=== PATIENT | male | born 1960 | race Caucasian/White ===

== ENCOUNTER 2018-05-18 19:12 | Inpatient (IN) | payer OTHER, MEDICAID ==
[~2018-05-18] VITALS: Ht 170.2 cm; Wt 74.1 kg
[2018-05-18 20:15] LABS: BASOPHIL % 0.3 % (0-2); PLATELET COUNT 312 x10^3mcL (130-400)
[2018-05-18 20:34] LABS: RED CELL DISTRIBUTION WIDTH 15.5 % (11.5-14.5)
[2018-05-18 20:38] LABS: CALCIUM 7.9 mg/dL (8.5-10.1); CARBON DIOXIDE 32.8 mmol/L (21-32); CHLORIDE SERUM 108 mmol/L (98-107); CREATININE SERUM 1.2 mg/dL (0.7-1.3); GFR1 > 60 mL/min; GLUCOSE SERUM 139 mg/dL (74-106); POTASSIUM SERUM 4.1 mmol/L (3.5-5.1); SODIUM SERUM 141 mmol/L (136-145)
[2018-05-18 20:42] LABS: ALKALINE PHOSPHATASE 71 U/L (46-116); ALT/SGPT 15 U/L (16-63); AST/SGOT 18 U/L (15-37); BILIRUBIN TOTAL 0.17 mg/dL (0.20-1.00)
[2018-05-18 20:43] LABS: ALBUMIN 2.3 g/dL (3.4-5.0); TOTAL PROTEIN, SERUM 5.9 g/dL (6.4-8.2)
[2018-05-18 21:02] LABS: rbc morphology (normal/abnorm) ABNORMAL (NORMAL)
[2018-05-18] MEDS ORDERED: NOR10T PO (23:01)
[2018-05-18] MEDS ORDERED: MOT800 PO (23:01)
[2018-05-18 23:02] LABS: microscopic required? NO
[2018-05-18 23:29] LABS: UA SPECIFIC GRAVITY 1.025 (1.005-1.035); urine erythrocyte NEGATIVE (NEGATIVE)
[2018-05-18 23:43] LABS: T3 TOTAL 0.91 ng/mL
[2018-05-18 23:45] LABS: PHOSPHOROUS 3.7 mg/dL (2.5-4.9)
[2018-05-18 23:50] LABS: CHOLESTEROL/HDL RATIO 3.4
[2018-05-18 23:52] VITALS: BP 89/52
[2018-05-18 23:53] LABS: AMPHETAMINE QUAL UR NONE DETECTED (See below)
[2018-05-19] VITALS (19 sets, daily range): BP systolic 73–131; BP diastolic 43–79
[2018-05-19 00:03] LABS: RED BLOOD CELLS 1.92 M/mm3 (4.52-5.90)
[2018-05-19 00:46] LABS: FREE T4 0.86 ng/dL (0.76-1.46)
[2018-05-19 00:55] LABS: FREE THYROXINE INDEX 1.7 ug/dL (1.4-4.5); T4(THYROXINE) 4.5 ug/dL (4.7-13.3)
[2018-05-19 01:51] LABS: IRON 8 ug/dL (65-170); TOTAL IRON BINDING CAPACITY 234 ug/dL (250-450)
[2018-05-19 02:36] LABS: BASOPHIL % 0.3 % (0-2); PLATELET COUNT 237 x10^3mcL (130-400)
[2018-05-19 02:51] LABS: RED CELL DISTRIBUTION WIDTH 15.6 % (11.5-14.5)
[2018-05-19 08:28] LABS: CALCIUM 7.6 mg/dL (8.5-10.1); CARBON DIOXIDE 26.2 mmol/L (21-32); CHLORIDE SERUM 110 mmol/L (98-107); CREATININE SERUM 1.3 mg/dL (0.7-1.3); GFR1 > 60 mL/min; GLUCOSE SERUM 145 mg/dL (74-106); MAGNESIUM 1.9 mg/dL (1.8-2.4); POTASSIUM SERUM 4.4 mmol/L (3.5-5.1); SODIUM SERUM 143 mmol/L (136-145)
[2018-05-19 08:33] LABS: BASOPHIL % 0.3 % (0-2); PLATELET COUNT 224 x10^3mcL (130-400)
[2018-05-19 08:37] LABS: RED CELL DISTRIBUTION WIDTH 19.4 % (11.5-14.5)
[2018-05-19 08:38] LABS: rbc morphology (normal/abnorm) NORMAL (NORMAL)
[2018-05-19 09:42] LABS: microscopic required? NO
[2018-05-19 09:46] LABS: urine erythrocyte NEGATIVE (NEGATIVE)
[2018-05-19 17:59] LABS: BASOPHIL % 0.2 % (0-2); PLATELET COUNT 165 x10^3mcL (130-400)
[2018-05-19 18:01] LABS: RED CELL DISTRIBUTION WIDTH 17.9 % (11.5-14.5)
[2018-05-20] VITALS (17 sets, daily range): BP systolic 89–120; BP diastolic 49–73
[2018-05-20 05:36] LABS: BASOPHIL % 0.4 % (0-2); PLATELET COUNT 191 x10^3mcL (130-400)
[2018-05-20 05:37] LABS: RED CELL DISTRIBUTION WIDTH 18.5 % (11.5-14.5)
[2018-05-20 05:53] LABS: CALCIUM 7.8 mg/dL (8.5-10.1); CARBON DIOXIDE 25.5 mmol/L (21-32); CREATININE SERUM 1.4 mg/dL (0.7-1.3); MAGNESIUM 1.9 mg/dL (1.8-2.4); PHOSPHOROUS 3.9 mg/dL (2.5-4.9); POTASSIUM SERUM 3.8 mmol/L (3.5-5.1)
[2018-05-21] VITALS (18 sets, daily range): BP systolic 93–118; BP diastolic 48–80
[2018-05-21 07:38] LABS: CALCIUM 7.6 mg/dL (8.5-10.1); CARBON DIOXIDE 23.8 mmol/L (21-32); CHLORIDE SERUM 113 mmol/L (98-107); CREATININE SERUM 1.1 mg/dL (0.7-1.3); GFR1 > 60 mL/min; GLUCOSE SERUM 120 mg/dL (74-106); MAGNESIUM 2.1 mg/dL (1.8-2.4); PHOSPHOROUS 2.8 mg/dL (2.5-4.9); POTASSIUM SERUM 3.4 mmol/L (3.5-5.1); SODIUM SERUM 140 mmol/L (136-145)
[2018-05-21 07:48] LABS: BASOPHIL % 0.7 % (0-2); PLATELET COUNT 168 x10^3mcL (130-400)
[2018-05-22] VITALS (16 sets, daily range): BP systolic 92–132; BP diastolic 47–75
[2018-05-22 05:35] LABS: BASOPHIL % 0.4 % (0-2); PLATELET COUNT 151 x10^3mcL (130-400)
[2018-05-22 05:38] LABS: RED CELL DISTRIBUTION WIDTH 18.1 % (11.5-14.5)
[2018-05-22 05:43] LABS: CALCIUM 7.3 mg/dL (8.5-10.1); CARBON DIOXIDE 25.6 mmol/L (21-32); CHLORIDE SERUM 112 mmol/L (98-107); GFR1 > 60 mL/min; GLUCOSE SERUM 117 mg/dL (74-106); MAGNESIUM 1.9 mg/dL (1.8-2.4); POTASSIUM SERUM 3.4 mmol/L (3.5-5.1); SODIUM SERUM 144 mmol/L (136-145)
[2018-05-22 06:45] LABS: rbc morphology (normal/abnorm) ABNORMAL (NORMAL)
[2018-05-22 19:06] LABS: BASOPHIL % 0.6 % (0-2); PLATELET COUNT 179 x10^3mcL (130-400)
[2018-05-22 19:07] LABS: RED CELL DISTRIBUTION WIDTH 16.5 % (11.5-14.5)
[2018-05-23] VITALS (18 sets, daily range): BP systolic 93–128; BP diastolic 50–78; Ht 170.2 cm; Wt 74.1 kg
[2018-05-23 05:52] LABS: CALCIUM 7.8 mg/dL (8.5-10.1); CARBON DIOXIDE 27.5 mmol/L (21-32); CHLORIDE SERUM 107 mmol/L (98-107); CREATININE SERUM 0.9 mg/dL (0.7-1.3); GFR1 > 60 mL/min; GLUCOSE SERUM 88 mg/dL (74-106); PHOSPHOROUS 2.7 mg/dL (2.5-4.9); POTASSIUM SERUM 3.1 mmol/L (3.5-5.1); SODIUM SERUM 139 mmol/L (136-145)
[2018-05-23 06:21] LABS: BASOPHIL % 0.5 % (0-2); PLATELET COUNT 183 x10^3mcL (130-400)
[2018-05-23 06:22] LABS: RED CELL DISTRIBUTION WIDTH 17.3 % (11.5-14.5)
[2018-05-24] VITALS (20 sets, daily range): BP systolic 92–146; BP diastolic 51–79
[2018-05-24 05:26] LABS: BASOPHIL % 0.3 % (0-2); PLATELET COUNT 232 x10^3mcL (130-400)
[2018-05-24 05:27] LABS: RED CELL DISTRIBUTION WIDTH 17.5 % (11.5-14.5)
[2018-05-24 05:28] LABS: CALCIUM 7.7 mg/dL (8.5-10.1); CARBON DIOXIDE 25.6 mmol/L (21-32); CHLORIDE SERUM 105 mmol/L (98-107); CREATININE SERUM 0.9 mg/dL (0.7-1.3); GFR1 > 60 mL/min; GLUCOSE SERUM 96 mg/dL (74-106); MAGNESIUM 2.1 mg/dL (1.8-2.4); PHOSPHOROUS 3.3 mg/dL (2.5-4.9); POTASSIUM SERUM 3.4 mmol/L (3.5-5.1); SODIUM SERUM 137 mmol/L (136-145)
[2018-05-25] VITALS (7 sets, daily range): BP systolic 105–123; BP diastolic 52–68
[2018-05-25 05:41] LABS: BASOPHIL % 0.4 % (0-2); PLATELET COUNT 283 x10^3mcL (130-400)
[2018-05-25 05:43] LABS: RED CELL DISTRIBUTION WIDTH 16.2 % (11.5-14.5)
[2018-05-25 05:50] LABS: CARBON DIOXIDE 24.3 mmol/L (21-32); CHLORIDE SERUM 107 mmol/L (98-107); GFR1 > 60 mL/min; GLUCOSE SERUM 121 mg/dL (74-106); MAGNESIUM 2.1 mg/dL (1.8-2.4); PHOSPHOROUS 2.7 mg/dL (2.5-4.9); POTASSIUM SERUM 3.6 mmol/L (3.5-5.1); SODIUM SERUM 141 mmol/L (136-145)
[2018-05-26 05:44] VITALS: BP 110/68
[2018-05-26 08:55] VITALS: BP 107/56
[2018-05-26 10:56] LABS: CALCIUM 8.5 mg/dL (8.5-10.1); CARBON DIOXIDE 27.6 mmol/L (21-32); CHLORIDE SERUM 101 mmol/L (98-107); CREATININE SERUM 1.1 mg/dL (0.7-1.3); GFR1 > 60 mL/min; GLUCOSE SERUM 171 mg/dL (74-106); POTASSIUM SERUM 3.3 mmol/L (3.5-5.1); SODIUM SERUM 138 mmol/L (136-145)
[2018-05-26 10:59] LABS: MAGNESIUM 2.1 mg/dL (1.8-2.4); PHOSPHOROUS 3.7 mg/dL (2.5-4.9)
[2018-05-26 11:09] LABS: PLATELET COUNT 335 x10^3mcL (130-400)
[2018-05-26 12:19] LABS: BAND NEUTROPHIL 3 % (0-10); BASOPHIL 0 % (0-2); MONOCYTE 6 % (0-7)
[2018-05-26 12:20] LABS: SEGMENTED NEUTROPHILS 85 % (37-75)
[2018-05-26 12:21] LABS: rbc morphology (normal/abnorm) ABNORMAL (NORMAL)
[2018-05-26 12:22] LABS: target cell (codocyte) 1+
[2018-05-26 13:56] VITALS: BP 112/60
[2018-05-26 17:38] VITALS: BP 104/63
[2018-05-26 20:56] VITALS: BP 106/63
[2018-05-27 04:34] VITALS: BP 107/67
[2018-05-27 06:55] LABS: BASOPHIL % 0.5 % (0-2); PLATELET COUNT 388 x10^3mcL (130-400)
[2018-05-27 07:01] LABS: CALCIUM 8.7 mg/dL (8.5-10.1); CHLORIDE SERUM 101 mmol/L (98-107); CREATININE SERUM 1.1 mg/dL (0.7-1.3); GFR1 > 60 mL/min; GLUCOSE SERUM 111 mg/dL (74-106); MAGNESIUM 2.1 mg/dL (1.8-2.4); PHOSPHOROUS 3.8 mg/dL (2.5-4.9); POTASSIUM SERUM 3.4 mmol/L (3.5-5.1); SODIUM SERUM 138 mmol/L (136-145)
[2018-05-27 09:10] VITALS: BP 97/58
[2018-05-27 12:00] VITALS: BP 104/59
[2018-05-27 16:23] VITALS: BP 124/69
[2018-05-27 20:43] VITALS: BP 96/65
[2018-05-28 05:26] VITALS: BP 98/64
[2018-05-28 12:32] VITALS: BP 99/63
[2018-05-28 18:00] VITALS: BP 100/56
[2018-05-28 21:08] VITALS: BP 98/57
[2018-05-29 06:38] LABS: RED CELL DISTRIBUTION WIDTH 16.9 % (11.5-14.5)
[2018-05-29 06:39] LABS: BASOPHIL % 0 % (0-2); PLATELET COUNT 410 x10^3mcL (130-400)
[2018-05-29 06:40] VITALS: BP 102/61
[2018-05-29 06:40] LABS: CALCIUM 9.1 mg/dL (8.5-10.1); CARBON DIOXIDE 26.8 mmol/L (21-32); CHLORIDE SERUM 103 mmol/L (98-107); CREATININE SERUM 1.1 mg/dL (0.7-1.3); GFR1 > 60 mL/min; GLUCOSE SERUM 103 mg/dL (74-106); POTASSIUM SERUM 4.2 mmol/L (3.5-5.1); SODIUM SERUM 137 mmol/L (136-145)
[2018-05-29 10:49] VITALS: BP 105/72
[2018-05-29 13:09] VITALS: BP 95/56
[2018-05-29] MEDS ORDERED: COL100 PO (13:28)
[2018-05-29] MEDS ORDERED: IPRATROPIUM BROM3 M2 INH (13:28)
[2018-05-29] MEDS ORDERED: PROTONIX40 MG PO (13:29)
[2018-05-29 13:36] VITALS: BP 95/56
== END 2018-05-29 15:07 | DRG 870 ==
LOC: ED 19:12 → IC 22:05 → DU 22:05 → IC 05-19 07:18 → MU 05-25 14:04 → DU 05-25 14:35
PROVIDERS: Emergency Medicine; Family Medicine; Internal Medicine
PROC: 30233N1 Transfusion of Nonautologous Red Blood Cells into Peripheral Vein, Percutaneous Approach (ICD-10-PCS; 2018-05-18)
PROC: 5A1955Z Respiratory Ventilation, Greater than 96 Consecutive Hours (ICD-10-PCS; 2018-05-19)
PROC: 0W3P8ZZ Control Bleeding in Gastrointestinal Tract, Via Natural or Artificial Opening Endoscopic (ICD-10-PCS; 2018-05-19)
PROC: 0BH17EZ Insertion of Endotracheal Airway into Trachea, Via Natural or Artificial Opening (ICD-10-PCS; principal; 2018-05-19 09:30)
DX: A41.9 Sepsis, unspecified organism (principal); J96.00 Acute respiratory failure, unspecified whether with hypoxia or hypercapnia; J18.9 Pneumonia, unspecified organism; E43 Unspecified severe protein-calorie malnutrition; N17.0 Acute kidney failure with tubular necrosis; G93.41 Metabolic encephalopathy; K92.2 Gastrointestinal hemorrhage, unspecified; D62 Acute posthemorrhagic anemia; R65.20 Severe sepsis without septic shock; E83.51 Hypocalcemia; R56.9 Unspecified convulsions; Q90.9 Down syndrome, unspecified; M41.9 Scoliosis, unspecified; E87.6 Hypokalemia; E83.39 Other disorders of phosphorus metabolism; F03.90 Unspecified dementia, unspecified severity, without behavioral disturbance, psychotic disturbance, mood disturbance, and anxiety; Z68.25 Body mass index [BMI] 25.0-25.9, adult; Y83.2 Surgical operation with anastomosis, bypass or graft as the cause of abnormal reaction of the patient, or of later complication, without mention of misadventure at the time of the procedure; Y92.049 Unspecified place in boarding-house as the place of occurrence of the external cause
CPT/HCPCS: 36600; 43235; 83880; 84439; 97110-GP; 97116-GP; 97530-GP; A4628; C9113; J0171; J0330; J0696; J1200; J1610; J1885; J1940; J2060; J2250; J2310; J2354; J2405; J2543; J2765; J3010; J3480; J3490; J7030; J7050; J7620; P9016; Q0092; Q0163